=== PATIENT | male | born 1960 | race Caucasian/White ===

== ENCOUNTER → 2018-10-09 | Outpatient (CLI) | payer OTHER ==
--- NOTE | 2018-10-10 09:13 | MR ---
EXAMINATION TYPE: MR knee LT wo con DATE OF EXAM: 10/09/2018 COMPARISON: NONE HISTORY: Medial Meniscus tear bilateral knees per order. Pain and swelling for 2 months after injury per patient. TECHNIQUE: Multiplanar, multisequence images of the left knee is performed without IV contrast. FINDINGS: MEDIAL MENISCUS: Anterior horn is intact without tear. Oblique signal posterior horn medial meniscus extending to inferior articular surface sagittal image 27 LATERAL MENISCUS: Anterior and posterior horns are intact without tear. CRUCIATE LIGAMENTS: The anterior and posterior cruciate ligaments are intact. Posterior cruciate liga ment is abnormal with marked heterogeneity and Increased signal that is seen diffusely throughout the posterior cruciate ligament. Some fibers remain intact posterior tibial insertion. COLLATERAL LIGAMENTS: The medial collateral ligament is intact and unremarkable. Lateral collateral l igament complex is torn with discontiguous fibers. EXTENSOR MECHANISM: Visualized quadriceps and patellar tendons are intact. EFFUSION: There is moderate to large size suprapatellar joint effusion. POPLITEAL CYST: There is moderate size multiseptated popliteal/rodrigez cyst measuring 5.2 cm long axis sagittal image 26 with adjacent surrounding fluid extending inferiorly posteriorly. TRICOMPARTMENT SPACES: Moderate narrowing patellofemoral compartment inferiorly. Mild to moderate walt rowing and spurring medial and lateral tibiofemoral compartments. CARTILAGE: Tricompartmental articular cartilage is fairly well maintained. BONE MARROW SIGNAL: No focal abnormal marrow signal is appreciated. OTHER: No additional significant abnormality is appreciated. IMPRESSION: 1. Oblique full-thickness tear posterior horn medial meniscus. 2. Complete tear lateral collateral ligament complex. 3. Moderate to large suprapatellar joint effusion. 4. Moderate-sized leaking multiseptated popliteal cyst. 5. Moderate tricompartment degenerative changes. 6. Abnormal appearance to posterior cruciate ligament.
--- NOTE | 2018-10-10 09:15 | MR ---
EXAMINATION TYPE: MR knee RT wo con DATE OF EXAM: 10/09/2018 COMPARISON: NONE HISTORY: Medial Meniscus tear bilateral knees per order. Pain and swelling for 2 months after injury per patient. TECHNIQUE: Multiplanar, multisequence images of the knee is performed without IV contrast. FINDINGS: MEDIAL MENISCUS: Anterior horn is intact without tear. Posterior horn shows fraying with abnormal sig nal inferiorly extending to inferior articular surface. LATERAL MENISCUS: Anterior and posterior horns are intact without tear. CRUCIATE LIGAMENTS: The anterior and posterior cruciate ligaments are intact and unremarkable. COLLATERAL LIGAMENTS: The medial collateral ligament and lateral collateral ligament complex are inta ct and unremarkable. EXTENSOR MECHANISM: Visualized quadriceps and patellar tendons are intact. EFFUSION: No significant suprapatellar joint effusion. POPLITEAL CYST: There is small to moderate size multiseptated popliteal/lam cyst measuring 3.5 cm l kulwinder exercise image 9. TRICOMPARTMENT SPACES: There is suboptimal evaluation of patellofemoral compartment due to susceptibi lity artifact at this level. There is mild medial and lateral tibiofemoral compartment narrowing with mild spurring. CARTILAGE: Articular cartilage shows mild narrowing medial tibiofemoral compartment BONE MARROW SIGNAL: No focal abnormal marrow signal is appreciated. OTHER: No additional significant abnormality is appreciated. IMPRESSION: 1. Full thickness tear posterior horn medial meniscus. 2. Suboptimal evaluation patellofemoral compartment, possible prior surgery, correlate clinically. 3. Mild degenerative changes right knee less prominent than opposite left knee. 4. Small to moderate size multiseptated Lam's cyst.
== END ==
LOC: RADMRIMAIN 06:04
PROVIDERS: ATTEND Orthopaedic Surgery
DX: S83.241A Other tear of medial meniscus, current injury, right knee, initial encounter (principal); M71.21 Synovial cyst of popliteal space [Baker], right knee; M71.22 Synovial cyst of popliteal space [Baker], left knee

== ENCOUNTER → 2018-10-10 | Outpatient (CLI) | payer OTHER ==
--- NOTE | 2018-10-10 15:10 | MR ---
EXAMINATION TYPE: MR shoulder RT wo con DATE OF EXAM: 10/10/2018 COMPARISON: NONE HISTORY: Rt shoulder pain, rotator cuff tear TECHNIQUE: Multiplanar, multisequence imaging of the right shoulder is performed without contrast. FINDINGS: Exam noted suboptimal due to patient's large body habitus. Rotator Cuff: Distal supraspinatus and infraspinatus tendons are intact. There is marked increased si gnal in both distal tendons. Rotator cuff muscle bulk is preserved. There is suboptimal evaluation of the subscapularis tendon due to artifact anteriorly. Acromioclavicular Joint: Mild narrowing and capsular hypertrophy is present seen best sagittal image 10. Distal acromion is shortened. Underlying fat plane is maintained. Glenohumeral Joint: Moderate joint effusion with moderate narrowing. Labrum: The labrum appears grossly intact given limitation of non-arthrogram study. Biceps Tendon: The long head of biceps is in normal location within bicipital groove. Bone marrow signal: No focal abnormal marrow signal is appreciated. Other: No additional significant abnormality is appreciated. IMPRESSION: Suboptimal study with moderate tendinosis distal supraspinatus and infraspinatus tendons without discrete tear. Moderate glenohumeral joint arthropathy noted.
== END ==
LOC: RADMRIMAIN 07:06
PROVIDERS: ATTEND Orthopaedic Surgery
DX: M19.011 Primary osteoarthritis, right shoulder (principal); M75.81 Other shoulder lesions, right shoulder

== ENCOUNTER 2018-10-14 06:08 | Day surgery (SDC) | payer OTHER ==
[2018-10-14] MEDS ORDERED: LACTATED RINGERS 1,000 ML IV SCH (06:12)
[2018-10-14] MEDS ORDERED: SODIUM CHLORIDE 0.9% 1,000 ML IV SCH (06:12)
[2018-10-14 06:52] LABS: Anion Gap 11 mmol/L; Blood Urea Nitrogen 20 mg/dL (9-20); Calcium 10.3 mg/dL (8.4-10.2); Carbon Dioxide 24 mmol/L (22-30); Chloride 106 mmol/L (98-107); Glucose 130 mg/dL (74-99); Potassium 4.5 mmol/L (3.5-5.1); Sodium 141 mmol/L (137-145)
[2018-10-14] MEDS ORDERED: PROPOFOL 10 MG/ML 20 ML VIAL IV ONE (07:10)
--- NOTE | 2018-10-14 07:34 | P.PCN ---
Date of Procedure: 10/14/18 Preoperative Diagnosis: Diagnosis Symptomatic persistent atrial fibrillation with RVR despite a combination of beta blockers and calcium channel blockers Procedure Electrical cardioversion for atrial fibrillation Patient is on ELIQUIS 5 mg twice daily Details Successful electrical cardioversion with a 200 J biphasic shock in the AP configuration Patient converted to sinus rhythm with a single shock, sinus rhythm in the 80s Plan Twelve-lead ECG Maximize antihypertensive therapy Continue ELIQUIS 5 mg twice daily Continue diltiazem 240 mg by mouth daily
[2018-10-14] MEDS ORDERED: FLECAINIDE 50 MG TAB PO SCH (09:00)
[2018-10-14] MEDS ORDERED: LISINOPRIL-HCTZ 10-12.5 MG 1 EACH TAB PO SCH (09:00)
[2018-10-14] MEDS ORDERED: DILTIAZEM HCL 240 MG PO SCH (09:00)
[2018-10-14] MEDS ORDERED: APIXABAN 5 MG TAB PO SCH (09:00)
[2018-10-14] MEDS ORDERED: SERTRALINE 50 MG TAB PO SCH (21:00)
== END 2018-10-14 08:34 | disposition home or self-care (01) ==
LOC: CATHEP 06:08
PROVIDERS: ATTEND Internal Medicine Clinical Cardiac Electrophysiology
DX: I48.1 Persistent atrial fibrillation (principal); I10 Essential (primary) hypertension; Z79.01 Long term (current) use of anticoagulants; Z79.899 Other long term (current) drug therapy; Z82.49 Family history of ischemic heart disease and other diseases of the circulatory system; Z72.0 Tobacco use
CPT/HCPCS: 92960; 80048; J2704

== ENCOUNTER → 2019-01-13 | Outpatient (CLI) | payer OTHER ==
[2019-01-13 16:30] LABS: HCT 47.2 % (39.0-53.0); HGB 15.4 gm/dL (13.0-17.5); MCH 30.7 pg (25.0-35.0); MCHC 32.5 g/dL (31.0-37.0); MCV 94.4 fL (80.0-100.0); Mean Platelet Volume 7.5; Platelet Count 216 k/uL (150-450); RDW 14.1 % (11.5-15.5); WBC 7.3 k/uL (3.8-10.6)
[2019-01-13 16:47] LABS: Magnesium 2.5 mg/dL (1.6-2.3); Potassium 4.6 mmol/L (3.5-5.1)
== END | disposition home or self-care (01) ==
LOC: LABPAT 15:42
PROVIDERS: ATTEND Internal Medicine Clinical Cardiac Electrophysiology
DX: Z01.812 Encounter for preprocedural laboratory examination (principal); I10 Essential (primary) hypertension; I48.1 Persistent atrial fibrillation
CPT/HCPCS: 80051; 82565; 82947; 83735; 84520; 85027

== ENCOUNTER 2019-01-20 06:59 | Day surgery (SDC) | payer OTHER ==
[2019-01-20] MEDS ORDERED: fentaNYL (PF) 50 MCG/ML 2 ML AMP ONE (08:12)
[2019-01-20] MEDS ORDERED: ROCURONIUM BROMIDE 10 MG/ML 10 ML VIAL IV ONE (08:12)
[2019-01-20] MEDS ORDERED: ISOPROTERENOL 250 MCG/1.25 ML SYR IV ONE (08:12)
[2019-01-20] MEDS ORDERED: GLYCOPYRROLATE 0.2 MG/ML 2 ML VIAL ONE (08:12)
[2019-01-20] MEDS ORDERED: ePHEDrine SULFATE/0.9% NACL/PF 50 MG/5 ML SYRINGE IV ONE (08:12)
[2019-01-20] MEDS ORDERED: ONDANSETRON 4 MG/2 ML VIAL ONE (08:12)
[2019-01-20] MEDS ORDERED: PROTAMINE SULFATE 10 MG/ML 5 ML VIAL IV ONE ×2 (08:12→12:36)
[2019-01-20] MEDS ORDERED: HEPARIN SODIUM,PORCINE 10,000 UNIT/ML 1 ML VIAL ONE (08:12)
[2019-01-20] MEDS ORDERED: NEOSTIGMINE 1 MG/ML 10 ML VIAL ONE (08:12)
[2019-01-20] MEDS ORDERED: MIDAZOLAM 2 MG/2 ML VIAL ONE (08:12)
[2019-01-20] MEDS ORDERED: SUCCINYLCHOLINE CHLORIDE 100 MG/5 ML SYR IV ONE (08:12)
[2019-01-20] MEDS ORDERED: FUROSEMIDE 10 MG/ML 2 ML VIAL ONE (08:12)
[2019-01-20] MEDS ORDERED: LIDOCAINE 1% INJ 10MG/ML (20 ML MDV) ONE ×2 (08:12→09:03)
[2019-01-20] MEDS ORDERED: PROPOFOL 10 MG/ML 20 ML VIAL IV ONE (08:12)
[2019-01-20] MEDS: SODIUM CHLORIDE 0.9% 1,000 ML IV SCH (08:19)
[2019-01-20] MEDS ORDERED: LIDOCAINE 1% INJ 10MG/ML (20 ML MDV) SQ ONE (09:04)
[2019-01-20] MEDS ORDERED: HEPARIN SOD,PORK IN 0.45% NACL 25,000 UNIT in 0.45% NACL 1 250ML.BAG IV ONE ×2 (09:04)
[2019-01-20] MEDS ORDERED: HEPARIN SODIUM (1,000 UNIT/ML) 1,000 UNIT in SODIUM CHLORIDE 0.9% 1,000 ML IRRIGATION ONE (09:04)
[2019-01-20] MEDS ORDERED: IOPAMIDOL-370 100ML BTL INJ ONE (10:51)
[2019-01-20] MEDS: LACTATED RINGERS 1,000 ML IV SCH (11:58)
[2019-01-20] MEDS ORDERED: HYDROcodone/APAP 5-325MG 1 EACH TAB PO PRN (13:10)
[2019-01-20] MEDS ORDERED: ACETAMINOPHEN TAB 325 MG TAB PO PRN (13:10)
--- NOTE | 2019-01-20 13:18 | P.PCN ---
Preoperative Diagnosis: Diagnosis Atrial fibrillation, symptomatic, refractory to therapy Result Successful pulmonary vein isolation of all veins using cryo-ablation Complete entrance block in all 4 veins confirmed No evidence for phrenic nerve injury Linear ablation along the anterior septum Ablation of complex fractionated electrograms around the fossa ovalis and linear ablation from the fossa ovalis to the anterior septal RF line Esophageal deflection YES Electrical cardioversion with a synchronized shock across the chest NO No left atrial appendage thrombus No pericardial effusion at the end of the procedure Procedure details Patient was brought to the EP lab in a fasting state. Written informed consent was obtained prior to the procedure. Procedure performed under general anesthesia After initial muscle relaxant use, muscle relaxants were not given thereafter in order to assess phrenic nerve during procedure. Patient prepped and draped as per protocol Full cryo-set up with standard preparation of the cryoablation tools done. Femoral Venous access obtained on the right and left groins Venous and arterial Sheaths placed. Diagnostic catheters for the high right atrium, phrenic nerve stimulation and pacing, His bundle, RV and coronary sinus placed Intracardiac echo catheter placed. Long sheath placed in the right atrium Left and right transseptal catheterization performed under intracardiac echo guidance. Intravenous heparin with aCT above 300 Later, catheter positioning and balloon positioning in the left atrium, under i ntracardiac echo guidance Diagnostic EP study with Drug infusion Coronary sinus pacing and recording Baseline measurements Sinus cycle length 1314 ms, [place] interval 159 ms, QRS 104 ms, QT 476 ms AH 91 and HV 52 ms Atrial pacing performed from the high right atrium and the coronary sinus RV pacing Sinus recovery times a 6 and found in 400 ms were 1451, 1271 and 774 ms. Cardiac sinus recovery times at pacing cycle length of 400 ms was prolonged AV node Wenckebach block greater than 590 ms VA Wenckebach block greater than 600 ms On Isuprel AV node Wenckebach block 530 ms Burst stimulation from the high right atrium from 400 ms noted to 70 ms on Isuprel did not induce atrial fibrillation following ablation Transseptal catheterization performed RA pressure 15/13/13 LA pressure 27/9/17 Transseptal catheterization performed with standard sheath. The cryoablation sheath was then placed with an over the wire exchange without any acute complications. All 4 pulmonary veins were isolated in the following sequence: Left superior followed by left inferior followed by right superior followed by right inferior The cryo-ablation balloon was placed at the os of each vein 1.5 mL of IV dye was injected to confirm an occluded vein Goal during cryoablation was to achieve complete occlusion of the pulmonary vein, achieve -30 degrees C at 30 seconds and achieve -40 degrees C at 60 seconds and a time to effect of less than 60-90 seconds, . If not the balloon was repositioned to obtain this result After completion of Cryoblation with durations from 180-240 seconds, entrance block was confirmed with the Attain circular catheter in a roving fashion around the antrum of the pulmonary veins Phrenic nerve pacing was performed from the SVC, right innominate vein area and diaphragm voltage was monitored. Diaphragmatic contractions were also monitored manually for strength of contraction. Parameter goals for each cryo freeze Complete occlusion of the appropriate vein -30 degrees C by 30 seconds -40 degrees C by 60 seconds Minimum between minus 40-55 degrees C Thaw time greater than 10 seconds Balloon visualized by intracardiac echo The esophagus was intubated. Esophageal Temperature monitoring with a CIRCA catheter formed. Esophageal deflection for hypothermia of the esophagus below 30 degrees C Left superior pulmonary vein Complete isolation, entrance block Left inferior pulmonary vein Complete isolation, entrance block Right superior pulmonary vein, during phrenic nerve pacing Complete isolation, entrance block Right inferior pulmonary vein, during phrenic nerve pacing Complete isolation, entrance block At the end of the procedure the Achieve catheter was once again used to check for entrance block Phrenic nerve stimulation was performed to confirm diaphragmatic stimulation the end of the procedure Cine fluoroscopy was performed at the very end of the procedure to confirm movement of both diaphragms with inspiration and expiration At the end of the procedure the patient was extubated Heparin was reversed Venous sheaths were removed and hemostasis assured Procedures performed (PVI - CRYO Ablation) Diagnostic EP study CS pacing and recording Left and right transseptal catheterization 3D mapping Intracardiac echocardiography Pulmonary vein isolation with transseptal and comprehensive EPS, [id number] Linear ablation along the anterior septum outside the antrum of the right-sided veins, +[id number] Ablation of complex fractionated electrograms on the fossa ovalis and linear ablation from the fossa ovalis to the anterior septal line, [id number] Drug Infusion +[id number]
[2019-01-20] MEDS ORDERED: ACETAMINOPHEN IV (For NPO) 1,000 MG in EMPTY BAG 1 BAG IVPB ONE (14:00)
[2019-01-20 14:47] VITALS: BMI 36.6
--- NOTE | 2019-01-20 18:18 | LTR ---
To: Dr. Morgan Trinh Re: Rito Vernon (62) Dear Dr. Trinh, I had the pleasure of seeing Mr. Vernon in electrophysiology followup. Rito underwent atrial fibrillation ablation with cryoablation of the pulmonary veins and linear ablation in the left atrium. Thereafter, I could not induce atrial fibrillation despite an EP study on high-dose Isuprel. He will continue his anticoagulation for now and antihypertensive therapy, and I will continue low-dose flecainide. He tolerated the procedure well without any acute complications. Thank you for entrusting me with the care of your patient. Warm regards. Sincerely, Kenton Diaz MD MMANSELMOL / VIKTORN: [id number] /
[2019-01-20 19:11] VITALS: RESP 18
[2019-01-20] MEDS: FLECAINIDE 50 MG TAB PO SCH (20:42)
[2019-01-20] MEDS: APIXABAN 5 MG TAB PO SCH (20:43)
[2019-01-20] MEDS ORDERED: SERTRALINE 50 MG TAB PO SCH (21:00)
[2019-01-21] MEDS: LACTATED RINGERS 1,000 ML IV SCH (00:52)
[2019-01-21] MEDS: SODIUM CHLORIDE 0.9% 1,000 ML IV SCH (00:52)
[2019-01-21] MEDS: FLECAINIDE 50 MG TAB PO SCH (07:45)
[2019-01-21] MEDS: APIXABAN 5 MG TAB PO SCH (07:46)
[2019-01-21 08:37] VITALS: PULSE 65; TEMP 98.1
[2019-01-21] MEDS ORDERED: LISINOPRIL-HCTZ 10-12.5 MG 1 EACH TAB PO SCH (09:00)
[2019-01-21] MEDS ORDERED: DILTIAZEM CD 240 MG CAP.ER.24H PO SCH (09:00)
[2019-01-21 12:00] VITALS: BP 132/78
--- NOTE | 2019-01-21 12:36 | P.DS ---
Providers Attending physician: Kenton Diaz Primary care physician: [facility] Course: Patient is a 58-year-old male with a past medical history of symptomatic persistent atrial fibrillation and hypertension who presented for an atrial fibrillation ablation. Yesterday patient underwent successful atrial fibrillation ablation with pulmonary vein isolation with linear ablation of the left atrium. He has done well postprocedure. No acute events overnight. Patient seen and examined resting comfortably in bed. Complaining of a mild sore throat. Denies any chest pain or shortness of breath. He was able to eat without any dysphagia. Has been getting up and walking around without any dizziness or lightheadedness. EKG shows sinus mechanism, normal NJ, narrow QRS Temperature 98.1F, pulse 65, respirations 18, blood pressure 132/78, oxygen saturation 95% on room air Patient seen and examined resting comfortably in bed, in no acute distress Lungs clear to auscultation bilaterally Heart is regular, normal S1-S2, no murmurs appreciated Bilateral groins minimally tender, no bruising, no hematomas palpated Impressions Symptomatic persistent atrial fibrillation status post atrial fibrillation ablation,in sinus rhythm today Hypertension, blood pressure stable Plan post Procedure restrictions discussed with the patient Continue current medications including flecainide and anticoagulation with eliquis Follow-up in the office in 2 weeks Monitor blood pressure at home, low sodium diet advised Plan - Discharge Summary Discharge Rx Participant: No New Discharge Prescriptions: Continue Sertraline [Zoloft] 50 mg PO HS Flecainide Acetate 50 mg PO Q12HR Apixaban [Eliquis] 5 mg PO BID Lisinopril-Hctz 10-12.5 mg [Zestoretic 10-12.5] 1 tab PO DAILY Diltiazem HCl [Diltiazem 24Hr ER (LA)] 240 mg PO QAM Cbd Oil 1 applic PO DAILY Ergocalciferol [Vitamin D2 (DRISDOL)] 50,000 unit PO FR Acetaminophen Tab [Tylenol] 1,000 mg PO DAILY Discharge Medication List Apixaban [Eliquis] 5 mg PO BID 10/10/18 [History] Cbd Oil 1 applic PO DAILY 10/10/18 [History] Diltiazem HCl [Diltiazem 24Hr ER (LA)] 240 mg PO QAM 10/10/18 [History] Flecainide Acetate 50 mg PO Q12HR 10/10/18 [History] Lisinopril-Hctz 10-12.5 mg [Zestoretic 10-12.5] 1 tab PO DAILY 10/10/18 [History] Sertraline [Zoloft] 50 mg PO HS 10/10/18 [History] Acetaminophen Tab [Tylenol] 1,000 mg PO DAILY 01/13/19 [History] Ergocalciferol [Vitamin D2 (DRISDOL)] 50,000 unit PO FR 01/13/19 [History] Follow up Appointment(s)/Referral(s): Kenton Diaz MD [STAFF PHYSICIAN] - 2 Weeks (Follow-up with Dr. Diaz/Ira Dominguez/[facility]) Activity/Diet/Wound Care/Special Instructions: Post EP study - Ablation instructions 1. Keep access sites dry for 2 days. 2. No heavy lifting or straining for 2 days. 3. Avoid bending the hips repeatedly for 2 days. 4. You may go up and down stairs slowly Call if the following is noted 1. Bleeding, increasing swelling or pain at the access sites. 2. Increasing chest discomfort, especially upon taking a deep breath. 3. Increasing shortness of breath, at rest or with exertion. 4. Undue cough / phlegm 5. Difficulty or pain while swallowing. 6. Pain or change in color in the extremities. 7. Fever, chills, rigors. 8. Increasing headache or neurologic symptoms. 9. Dizziness, fainting, palpitations
== END 2019-01-21 16:20 | disposition home or self-care (01) ==
LOC: CATHEP 06:59 → 1SOBS 12:59 → CATHEP 01-21 16:20
PROVIDERS: ATTEND Internal Medicine Clinical Cardiac Electrophysiology
DX: I48.1 Persistent atrial fibrillation (principal); I10 Essential (primary) hypertension; R01.1 Cardiac murmur, unspecified; Z72.0 Tobacco use; Z82.49 Family history of ischemic heart disease and other diseases of the circulatory system; Z79.01 Long term (current) use of anticoagulants; Z79.899 Other long term (current) drug therapy
CPT/HCPCS: 85347; 93623; 93662; 93613; 93656; 93657; C1769 ×4; C1894 ×2; C1730 ×2; C1731; C1759; C1893; C1733; C1766; C1732; J2250; J2720; J1644 ×3; J1940; J2710; J2405; J2001; J3010; J0330; J2704; Q9967